=== PATIENT | female | born 1950 | race Caucasian/White ===

== ENCOUNTER → 2018-04-25 | Outpatient (CLI) | payer OTHER ==
[~2018-04-25] MED LIST: ASPIRIN EC325 M1 PO; ASPIRIN325 PO; ASPIRIN81 M2 PO; BLACK COHOSH540 MG PO; BRIMONIDINE TAR15 M1 OPHTHALMIC; BUSPIRONE HCL10 MG PO; CARVEDILOL12.5 MG PO; COLACE100 MG PO; CYCLOBENZAPRINE10 MG PO; ELIQUIS2.5 MG PO; ELIQUIS5 MG PO; ENOXAPARIN40 MG/0.1 PO; FOLIC ACID0.4 MG PO; GLUCOTROL10 MG PO; GLYBURIDE 5 MG T5 M1 PO; HYDROCHLOROTH12.5 MG PO; HYDROCHLOROTHIA25 M1 PO; HYDROCODON-ACE1 EAC5 PO; HYDROCODON-ACE1 EAC7 PO; LIPITOR 20 MG T20 M1 PO; LOPERAMIDE 2 MG2 M1 PO; LOVASTAT20 PO; MOBIC15 MG PO; MOVANA300 MG PO; NEURONTIN600 MG PO; NORCO 5-325 TA1 EACH PO; OXYCODONE HCL 55 MG PO; PERCOCET PO; SIMVASTATIN40 MG PO; SOY ISOFLAVONES40 MG PO; TIZANIDINE HCL4 MG PO; TRAMADOL 50 MG50 MG PO; TRAVATAN 0.004%5 ML; TURMERIC500 MG PO; ULTRAM 50MG TAB50 MG PO; VITAMIN B-12500 MCG PO; VITAMIN B-650 M1 PO; VITAMIN D35000 UNI1 PO; VITAMIN E400 UNI6 PO; VITCB500GO PO; ZANAFLEX4 M1 PO; ZOFRAN ODT4 MG PO; [UNRECOGNIZED DRUG - OTHER]; cranberry PO; vitamin b12; vitamin b6; vitamin d3 PO
== END ==
LOC: M.ULTRA 13:33
DX: Z12.31 Encounter for screening mammogram for malignant neoplasm of breast (principal); N02.9 Recurrent and persistent hematuria with unspecified morphologic changes; E83.52 Hypercalcemia; N17.9 Acute kidney failure, unspecified

== ENCOUNTER 2018-07-12 05:51 | Inpatient (IN) | payer OTHER ==
[2018-07-04 13:01] LABS: ABSOLUTE BASOPHILS 0.1 thou/uL (0.0-0.2); ABSOLUTE EOSINOPHILS 0.2 thou/uL (0.0-0.7); ABSOLUTE LYMPHOCYTES 2.2 thou/uL (0.8-5.3); ABSOLUTE MONOCYTES 0.5 thou/uL (0.0-1.2); ABSOLUTE NEUTROPHILS 4.7 thou/uL (1.6-8.1); BASOPHILS 0.9 %; EOSINOPHILS 2.1 %; HEMATOCRIT 39.5 % (37.0-47.0); HEMOGLOBIN 13.4 gm/dL (12.0-15.0); LYMPHOCYTES 28.9 %; MCH 29.9 pg (26.0-34.0); MONOCYTES 6.9 %; MPV 6.9 fl. (7.2-11.1); NUCLEATED RBCS 0 /100WBC; PLATELET COUNT* 361 thou/uL (150-400); POLYS 61.2 %; RBC 4.49 mil/uL (4.20-5.00); RDW-CV 14.1 % (10.5-14.5); WBC 7.7 thou/uL (4.0-11.0)
[2018-07-04 13:06] LABS: APTT 26.8 Seconds (25.0-31.3); INR 1.1; PROTIME 10.4 Seconds (9.20-11.50)
[2018-07-04 13:11] LABS: CALCIUM 9.8 mg/dL (8.5-10.1); CREATININE 1.3 mg/dL (0.6-1.3); POTASSIUM 4.1 mmol/L (3.5-5.1); TOTAL BILIRUBIN 0.7 mg/dL (<0.1-1.0); TOTAL PROTEIN 8.4 g/dL (6.4-8.2)
[2018-07-04 14:04] LABS: ESR (SEDRATE) 70 mm/hr (0-30)
[2018-07-05 05:15] LABS: GLYCOHEMOGLOBIN (HGB A1C) 6.4 % (4.8-5.6)
--- NOTE | 2018-07-05 10:23 | EKG ---
[place] [address] ELECTROCARDIOGRAM REPORT Name: EWELINA LORA Room: PRE IN [facility].#: [id number] Admission: Attend Phys: Julian Bartholomew Discharge: Date of : 54 Report #: [id number] THIS REPORT FOR: //name// [facility] Test Date: 2018-07-04 Test Time: 13:02:09 Pat Name: EWELINA LORA Department: Room: Gender: F Activity Therapy Teacher: : 1950 Requested By: Sergio Arteaga Order Number: [id number] Reading MD: Ihsan Edmondson Measurements Intervals [place] Rate: 61 P: 38 MD: 177 QRS: -14 QRSD: 98 T: -1 QT: 414 QTc: 417 Interpretive Statements Sinus rhythm Low voltage, precordial leads No previous ECG available for comparison Electronically Signed On 07-05-2018 10:23:43 CDT by Ihsan Edmondson [email or web address] <ELECTRONICALLY SIGNED> By: Ihsan Edmondson MD, [facility] 07/05/18 1023 1302 1302 Ihsan Edmondson MD, FAC /EPI
[~2018-07-12] VITALS: Ht 175 cm; Wt 79.4 kg
[~2018-07-12 05:51] MED LIST changes: -ASPIRIN325 PO; -ELIQUIS2.5 MG PO; -ELIQUIS5 MG PO
[2018-07-12 06:54] VITALS: BP 118/65
[2018-07-12 11:50] VITALS: BP 162/72
[2018-07-12 12:24] VITALS: BP 162/72
[2018-07-12 16:37] VITALS: BP 157/78
--- NOTE | 2018-07-12 16:44 | NUR ---
SAW PT.AND DAUGHTER AT BEDSIDE. PT.WAS ALERT AND ORIENTED. STATED SHE LIVES BY HERSELF. IS NORMALLY INDEPENDENT. HER GRANDAUGHTER THAT IS A POLICE RESERVES COMMANDER WILL BE STAYING WITH HER FOR AHWILE AT DISCHARGE. HER SON AND MOM LIVE WITHIN 5 MIN.OF HER HOUSE AND CAN HELP HER NEEDED. SHE HAS A FRONT WHEEL WALKER. SHE CHOSE [facility] FOR HOME HEALTH IF NEEDED. INITIAL REFERRAL SENT TO [facility]. [phone] [facility] [address] [phone].
--- NOTE | 2018-07-12 17:12 | NUR ---
PATIENT ARRIVED TO THE UNIT FROM PACU AT 1120. SLEEPY BUT ALERT AND ORIENTED X4. ASSESSMENT COMPLETED AND CHARTED. VSS ON 3 LITERS 02. NO COMPLAINTS OF SOA OR NAUSEA. PAIN HAS BEEN MANAGED WITH PAIN MEDICATION. MEPILEX DRESSING TO RIGHT HIP IS CLEAN, DRY AND INTACT. ABDUCTOR PILLOW IN PLACE. ICE PACKS IN PLACE ON RIGHT HIP. SUPPORTIVE FAMILY HAS BEEN AY BEDSIDE THROUGHOUT SHIFT. HOURLY ROUNDS MAINTAINED, CALL LIGHT WITHIN REACH, NURSING WILL CONTINUE TO MONITOR.
[2018-07-13 00:38] VITALS: BP 142/63
[2018-07-13 04:43] LABS: HEMATOCRIT 32.1 % (37.0-47.0); HEMOGLOBIN 11.1 gm/dL (12.0-15.0); MCH 30.4 pg (26.0-34.0); MCHC 34.6 g/dL (28.0-37.0); MCV 87.9 fL (80.0-100.0); MPV 7.4 fl. (7.2-11.1); RBC 3.66 mil/uL (4.20-5.00); RDW-CV 13.5 % (10.5-14.5); WBC 9.6 thou/uL (4.0-11.0)
[2018-07-13 04:53] VITALS: BP 120/61
--- NOTE | 2018-07-13 05:44 | NUR ---
ALERT AND ORIENTED X4. UP WITH 1 ASSIST, GAIT BELT AND WALKER. WEIGHTBEARING TOLERATED TO LOWER EXTREMITIES. PATIENT UNABLE TO VOID. BLADDER SCAN SHOWED 850ML IN BLADDER. DR NOTIFIED AND NEW ORDER NOTED. VAZQUEZ CATHETER PLACED WITHOUT DIFFICULTY WITH CLEAR YELLOW URINE RETURN. BED ALARM ON AND CALL LIGHT WITHIN REACH.
[2018-07-13 05:45] LABS: ALBUMIN 2.8 g/dL (3.4-5.0); CREATININE 1.1 mg/dL (0.6-1.3); MAGNESIUM 1.5 mg/dL (1.8-2.4); POTASSIUM 3.9 mmol/L (3.5-5.1); TOTAL BILIRUBIN 0.8 mg/dL (<0.1-1.0); TOTAL PROTEIN 5.6 g/dL (6.4-8.2)
[2018-07-13 08:00] VITALS: BP 128/80
[2018-07-13] MEDS ORDERED: ELIQUIS2.5 MG PO (14:47)
[2018-07-13] MEDS ORDERED: ZOFRAN ODT4 MG PO (14:47)
[2018-07-13] MEDS ORDERED: ELIQUIS5 MG PO (14:57)
[2018-07-13] MEDS ORDERED: OXYCODONE HCL 55 MG PO ×2 (14:57→15:19)
[2018-07-13] MEDS ORDERED: PERCOCET PO ×2 (14:57→15:19)
[2018-07-13] MEDS ORDERED: ASPIRIN325 PO (15:28)
[2018-07-13 16:17] VITALS: BP 128/80
[2018-07-13] MEDS ORDERED: COLACE100 MG PO (16:23)
--- NOTE | 2018-07-13 16:45 | NUR ---
PATIENT DISCHARGED TO HOME. DISCHARGE PAPERS REVIEWED AND SIGNED. PRESCRIPTIONS AND INFORMATION SHEETS GIVEN AND CALLED TO PHARMACY. PATIENT REFUSED HOME HEALTH. PATIENT HAS HOME WALKER. IV REMOVED. PATIENT DENIES ANY FURTHER NEEDS. PATIENT TAKEN BY WHEELCAHIR TO EXIT. LEFT WITH FAMILY.
--- NOTE | 2018-07-31 08:10 | OP ---
[address] [address] OPERATIVE REPORT Name: EWELINA LORA Room: [address] IN [facility]#: [id number] Admission: 07/12/18 Attend Phys: Julian Bartholomew Discharge: 07/13/18 Date of : 54 Report #: [id number] THIS REPORT FOR: //name// CC: Sergio Ireland DATE OF SERVICE: 07/12/2018 PREOPERATIVE DIAGNOSIS: Primary osteoarthritis, right hip. POSTOPERATIVE DIAGNOSIS: Primary osteoarthritis, right hip. PROCEDURE: Right total hip arthroplasty with direct anterior approach. SURGEON: Sergio Arteaga DO. [employer] SUPERVISOR: Mariana Sanchez DO. ANESTHESIA: General with local periarticular block. FLUIDS: Lactated Ringer's. ANTIBIOTICS: 2 grams Ancef IV preoperatively. DRAINS: None. SPECIMENS: None. ESTIMATED BLOOD LOSS: 250 mL. COMPLICATIONS: None. ORTHOPEDIC IMPLANTS: Biomet 48-mm G7 acetabular shell, a 38-mm dual mobility bearing, 28-mm ceramic head, standard neck length taper adapter and a size 6 high-offset Taperloc complete stem. There was a 38-mm inner diameter dual mobility acetabular liner. Other 1 gram of tranexamic acid IV preoperatively. HISTORY: The patient is a 68-year-old female who has been dealing with right hip pain for a long period of time. She has known osteoarthritis of her right hip. Radiographs show [id number] articulation, subchondral sclerosis, periarticular osteophyte. She has failed conservative treatments. She presents today for right total hip arthroplasty with direct anterior approach. Risks, benefits, complications, indications and alternatives were discussed. She has [address] [place] [id number] OPERATIVE REPORT Name: EWELINA LORA Room: [address] IN [facility].#: [id number] Admission: 07/12/18 Attend Phys: Julian Bartholomew Discharge: 07/13/18 Date of : 54 Report #: [id number] voiced understanding, signed consent and elected to proceed. Risks include but not limited to fracture, infection, neurovascular injury, continued pain, loss of motion, need for subsequent revision surgery, DVT, PE, DE, stroke, and even . DESCRIPTION OF PROCEDURE: The patient was taken to the operative suite, placed in supine position, given the benefit of general anesthetic, placed on a [place] table against perineal post. Both feet were placed in traction boots. Right hip was sterilely prepped and draped in usual fashion. Proper operative site was confirmed with standard timeout technique. A direct anterior approach was taken to the right hip. Lateral circumflex vessels were identified, cauterized and incised. The anterior capsule was exposed. It was treated with Aquamantys for hemostasis and anterior capsulectomy was performed. Once the femoral neck was exposed, femoral neck cut was made with an oscillating saw, utilizing a napkin ring technique, the head and neck were removed. Retractors were placed for acetabular exposure. Labral debridement was performed with Bovie knife and then reaming was initiated up in sequential fashion to a size 47 reamer. C-arm fluoroscopic images confirmed appropriate depth and circumference of reaming. Thorough irrigation of the acetabulum showed circumferential punctate bleeding. I then implanted the above-mentioned acetabular shell in a press-fit fashion. Two 6.5-mm bone screws, one 25 mm in length and one 20 mm in length were placed for additional acetabular fixation. I then implanted the final liner for a planned dual mobility construct. I turned my attention to the proximal femur. Appropriate capsular releases were performed along with leg positioning and the elevating hook of the [place] table. I was able to achieve appropriate proximal femoral exposure. Intramedullary canal was accessed with a rattail rasp and broaching was initiated up in sequential fashion to a size 6 broach, which was left in place for trialing. Trialing of a high-offset standard neck length construct showed excellent intraoperative stability. C-arm fluoroscopic image confirmed appropriate plate placement and sizing as well as leg length and offset. The hip was dislocated. Trials were removed. Thorough irrigation was performed. Final stem was then implanted in press-fit fashion. Final head and neck construct were impacted on the Allen taper. The hip was reduced. Final C-arm fluoroscopic images confirmed appropriate implant placement and sizing as well as leg length and offset. Hemostasis was shown to be appropriate. Periarticular block was utilized containing Marcaine, morphine, Toradol, epinephrine and normal saline. Final thorough irrigation was performed. The tensor fascia was closed with a 2-0 Quill suture in a running locked fashion. Subcuticular closure was performed with a 2-0 Vicryl simple inverted interrupted fashion. Skin was closed with a 3-0 Stratafix subcuticular suture with Dermabond on the skin. Sterile dressings were applied. The patient tolerated [facility] [address] [place] [address] OPERATIVE REPORT Name: EWELINA LORA Room: [address] IN .R.#: [id number] Admission: 07/12/18 Attend Phys: Julian Bartholomew Discharge: 07/13/18 Date of : 54 Report #: [id number] the procedure well. Sponge and needle counts were correct x 2. The patient was taken to recovery room in stable condition. <ELECTRONICALLY SIGNED> By: Darrick Coats DO 07/31/18 0810 1518 1551Alan Don Arteaga DO /mateo
== END 2018-07-13 16:45 | disposition home or self-care (01) | DRG 470 ==
LOC: M.TBA 05:51 → M.PRE 06:16 → M.ORTHSURG 11:18 → M.PRE 12:43 → M.ORTHSURG 07-13 16:45
PROVIDERS: Internal Medicine; Orthopaedic Surgery; ADMIT Internal Medicine
PROC: 0SR901A Replacement of Right Hip Joint with Metal Synthetic Substitute, Uncemented, Open Approach (ICD-10-PCS; principal; 2018-07-12)
DX: M16.11 Unilateral primary osteoarthritis, right hip (principal); E11.22 Type 2 diabetes mellitus with diabetic chronic kidney disease; K58.9 Irritable bowel syndrome, unspecified; R33.9 Retention of urine, unspecified; E78.5 Hyperlipidemia, unspecified; N18.3 Chronic kidney disease, stage 3 (moderate); F41.9 Anxiety disorder, unspecified; Z90.710 Acquired absence of both cervix and uterus; Z79.899 Other long term (current) drug therapy; Z88.8 Allergy status to other drugs, medicaments and biological substances

== ENCOUNTER 2020-06-04 06:23 | Observation (INO) | payer OTHER ==
[2020-06-01 09:01] LABS: ABSOLUTE EOSINOPHILS 0.4 thou/uL (0.0-0.7); ABSOLUTE LYMPHOCYTES 1.8 thou/uL (0.8-5.3); ABSOLUTE MONOCYTES 0.5 thou/uL (0.0-1.2); ABSOLUTE NEUTROPHILS 3.5 thou/uL (1.6-8.1); BASOPHILS 0.7 %; EOSINOPHILS 6.2 %; HEMATOCRIT 40.6 % (37.0-47.0); LYMPHOCYTES 28.8 %; MCH 30.8 pg (26.0-34.0); MCHC 34.4 g/dL (28.0-37.0); MCV 89.6 fL (80.0-100.0); MONOCYTES 8.7 %; MPV 7.2 fl. (7.2-11.1); NUCLEATED RBCS 0 /100WBC; PLATELET COUNT* 289 thou/uL (150-400); POLYS 55.6 %; RBC 4.53 mil/uL (4.20-5.00); RDW-CV 12.7 % (10.5-14.5); WBC 6.2 thou/uL (4.0-11.0)
[2020-06-01 09:12] LABS: APTT 25.2 Seconds (25.0-31.3); PROTIME 10.4 Seconds (9.20-11.50)
[2020-06-01 09:31] LABS: ALBUMIN 4.3 g/dL (3.4-5.0); CREATININE 1.4 mg/dL (0.6-1.3); POTASSIUM 4.6 mmol/L (3.5-5.1); TOTAL BILIRUBIN 0.6 mg/dL (<0.1-1.0); TOTAL PROTEIN 7.6 g/dL (6.4-8.2)
[2020-06-01 10:09] LABS: ESR (SEDRATE) 22 mm/hr (0-30)
--- NOTE | 2020-06-01 12:27 | EKG ---
[place] [address] ELECTROCARDIOGRAM REPORT Name: EWELINA LORA Room: [facility]#: [id number] Admission: Attend Phys: Julian Lindsay Discharge: Date of : 54 Date of Service: 06/01/2051 Report #: [id number] THIS REPORT FOR: //name// [facility] Test Date: 2020-06-01 Test Time: 09:51:36 Pat Name: EWELINA LORA Department: Room: Gender: F Dope Weigh Operator: : 1950 Requested By: Sergio Arteaga Order Number: [id number] Rochelle MD: Wili Ramirez Measurements Intervals [place] Rate: 55 P: 54 MD: 197 QRS: -13 QRSD: 107 T: -3 QT: 432 QTc: 414 Interpretive Statements Sinus rhythm Low voltage, precordial leads Compared to ECG 07/04/2018 13:02:09 No significant changes Electronically Signed On 06-01-2020 12:27:09 CDT by Wili Ramirez [email or web address] <ELECTRONICALLY SIGNED> By: Wili Ramirez MD, [facility] 06/01/20 1227 0951 Wili Ramirez MD, [facility] /EPI
[2020-06-02 02:06] LABS: GLYCOHEMOGLOBIN (HGB A1C) 5.9 % (4.8-5.6)
[~2020-06-04] VITALS: Ht 157.5 cm; Wt 77.1 kg
--- NOTE | ~2020-06-04 | OP ---
[address] [address] OPERATIVE REPORT Name: EWELINA LORA Clay Room: [address] Marley Stevens#: [id number] Admission: 06/04/20 Attend Phys: Julian Bartholomew Discharge: 06/05/20 Date of : 54 Report #: [id number] THIS REPORT FOR: //name// cc: ANNABELLE PRESCOTT MD, HEATHER L. MD ~ THIS REPORT FOR: //name// CC: Sergio Ireland DATE OF SERVICE: 06/04/2020 PREOPERATIVE DIAGNOSIS: Primary osteoarthritis, left hip. POSTOPERATIVE DIAGNOSIS: Primary osteoarthritis, left hip. PROCEDURE: Left total hip arthroplasty, direct anterior approach. SURGEON: Sergio Arteaga DO QUARRY SUPERVISOR: Vikas Calvillo DO SECOND BRACELET FORM COVERER: Vicki Hodge DO ANESTHESIA: General with local periarticular block. FLUIDS: Lactated Ringer's. ANTIBIOTICS: 2 g Ancef IV preoperatively. DRAINS: None. SPECIMENS: None. ESTIMATED BLOOD LOSS: 350 mL with 160 mL transfused via Cell Saver. COMPLICATIONS: None. ORTHOPEDIC IMPLANTS: Biomet 48 mm G7 acetabular shell. Two 6.5 mm bone screws, both 25 mm in length for additional acetabular fixation. A 38 mm inner diameter, dual mobility acetabular liner, a 38 mm outer diameter vitamin E highly cross-linked polyethylene dual mobility bearing, 28 mm ceramic head with a -3 mm neck length adapter and a size 8 high offset Taperloc complete stem. [address] [address] OPERATIVE REPORT Name: EWELINA LORA Clay Room: [address] Marley Stevens#: [id number] Admission: 06/04/20 Attend Phys: Julian Bartholomew Discharge: 06/05/20 Date of : 54 Report #: [id number] Other weight-based tranexamic acid IV preoperatively. HISTORY: The patient is a 69-year-old female with longstanding history of left hip pain. She has known advanced osteoarthritis of left hip. She has had previous right total hip arthroplasty, which she did very well with. She presents today for elective left total hip arthroplasty, direct anterior approach. Risks, benefits, complications, indications, alternatives were discussed. She has voiced understanding, signed consent and elected to proceed. Risks include but not limited to fracture, infection, neurovascular injury, continued pain, loss of motion, need for subsequent revision surgery, leg length inequality, instability, dislocation of left hip joint, DVT, PE, DE, stroke, and even . DESCRIPTION OF PROCEDURE: The patient was taken to the operative suite, placed in supine position, given benefit of general anesthetic, placed on a [place] table against a perineal post. Both feet were placed in traction boots. All bony prominences were well padded. Left hip sterilely prepped and draped in usual fashion. Proper operative site was confirmed through standard timeout technique. Direct anterior approach was taken to the left hip. Lateral circumflex vessels were identified, cauterized and incised. Anterior capsule was exposed. It was treated with Aquamantys for hemostasis and anterior capsulectomy was performed. Femoral neck cut was then made with an oscillating saw and utilizing a napkin ring technique, the head and neck were removed. Retractors were repositioned for acetabular exposure. Labral debridement was performed with Bovie knife and then reaming was initiated upwards in a sequential fashion to a size 47 reamer. C-arm fluoroscopic images confirmed depth and circumference of reaming. Thorough irrigation was performed and this revealed circumferential punctate bleeding in the acetabulum. I then implanted the above-mentioned acetabular shell in a press-fit fashion under C-arm fluoroscopic guidance, then two 6.5 mm bone screws were placed for additional acetabular fixation. I then implanted the above-mentioned acetabular liner. I turned my attention to the proximal femur where appropriate capsular releases were performed along with leg positioning and the external elevating hook to [place] table, I was able to achieve excellent proximal femoral exposure. Intramedullary canal was accessed with a rat tail rasp and then broaching was initiated up in sequential fashion to a size 8 broach, which was left in place for trialing. Trialing of high offset -3 mm neck length construct provided excellent intraoperative stability. C-arm fluoroscopic images confirmed appropriate implant placement sizing as well as leg length and offset. The hip was dislocated, trials removed. Thorough irrigation was performed. Final stem was implanted in press-fit fashion. The dual mobility head was impacted on the Allen taper after being constructed on the back table. The hip was reduced. Intraoperative stability checks were excellent. Final C-arm fluoroscopic images confirmed placement sizing as well as leg length and offset. Thorough irrigation was performed. Hemostasis shown to be appropriate. Periarticular block utilizing Marcaine, morphine, Toradol, epinephrine [place] [address] OPERATIVE REPORT Name: EWELINA LORA Room: [address] Marley Stevens#: [id number] Admission: 06/04/20 Attend Phys: Julian Bartholomew Discharge: 06/05/20 Date of : 54 Report #: [id number] Tensor fascia was then closed with a running barbed suture. Subcuticular closure was performed with 2-0 Vicryl in simple inverted interrupted fashion. Skin was closed with running 3-0 Stratafix suture subcuticularly with Dermabond on the skin. Sterile dressings were applied. The patient tolerated the procedure well. All sponge and needle counts were correct x 2. The patient was taken to recovery room in stable condition. By: [id number] Arteaga DO /nt
[~2020-06-04 06:23] MED LIST changes: +AMARYL2 MG PO; +ASPIRIN325 PO; +BENADRYL25 MG PO; +ELIQUIS2.5 MG PO; +ELIQUIS5 MG PO; +NORVASC5 MG PO; +TIZANIDINE HCL6 MG PO
[2020-06-04 15:30] VITALS: BP 121/61
[2020-06-04 21:00] VITALS: BP 138/74
[2020-06-05] VITALS: BP 133/65
[2020-06-05 03:46] VITALS: BP 141/70
[2020-06-05 03:57] LABS: HEMATOCRIT 36.6 % (37.0-47.0); HEMOGLOBIN 12.7 gm/dL (12.0-15.0)
[2020-06-05 08:09] VITALS: BP 116/63
[2020-06-05] MEDS ORDERED: ELIQUIS5 MG PO (09:47)
[2020-06-05 10:00] VITALS: BP 116/63
[2020-06-05 16:00] VITALS: BP 119/64
== END 2020-06-05 18:19 | disposition home or self-care (01) ==
LOC: M.TBA 06:23 → M.PRE 08:22 → M.ORTHSURG 11:28 → M.PRE 11:42 → EDSTATUS 13:21 → M.PRE 13:24 → M.ORTHSURG 06-05 18:19
PROVIDERS: Orthopaedic Surgery; ADMIT Internal Medicine; ATTEND Internal Medicine
DX: Z03.818 Encounter for observation for suspected exposure to other biological agents ruled out (principal); M16.12 Unilateral primary osteoarthritis, left hip; E11.22 Type 2 diabetes mellitus with diabetic chronic kidney disease; N18.2 Chronic kidney disease, stage 2 (mild)